=== PATIENT | male | born 2000 | race Caucasian/White ===

== ENCOUNTER 2024-04-11 20:52 | Emergency (ER) | payer OTHER ==
[~2024-04-11] VITALS: Ht 167.6 cm; Wt 97.5 kg
[2024-04-11 21:35] VITALS: BP 143/87; PULSE 62; RESP 14; TEMP 97.3; O2SAT 99
[2024-04-11 21:38] VITALS: BP 143/87; PULSE 62; RESP 14; TEMP 97.3
[2024-04-11 23:28] VITALS: O2SAT 99
[2024-04-11] MEDS ORDERED: AMOX1TAB8 PO (23:36)
[2024-04-11] MEDS ORDERED: IBUP-2213 PO (23:36)
[2024-04-11] MEDS ORDERED: BACTO TP (23:36)
[2024-04-11] MEDS ORDERED: cefTRIAXone 1,000 MG VIAL ONE (23:37)
[2024-04-11] MEDS ORDERED: LIDOCAINE MPF 1% 5 ML ONE (23:38)
[2024-04-11] MEDS: BACITRACIN OINT 500 UNITS/GM PKT TP ONE (23:38)
[2024-04-11] MEDS: IBUPROFEN 800 MG TAB PO ONE (23:38)
[2024-04-11] MEDS: cefTRIAXone 1,000 MG in LIDOCAINE MPF 1% 2.1 ML IM ONE (23:39)
== END 2024-04-11 23:58 | disposition home or self-care (01) ==
LOC: MED 20:52
DX: L60.0 Ingrowing nail (principal); Z79.899 Other long term (current) drug therapy
CPT/HCPCS: 96372; 99283; J0696; J2001